=== PATIENT | female | born 1950 | race Caucasian/White ===

== ENCOUNTER 2017-11-06 09:46 | Emergency (ER) | payer MEDICAID ==
[~2017-11-06] VITALS: Ht 157.5 cm; Wt 60.0 kg
[2017-11-06 11:24] VITALS: BP 193/61
== END 2017-11-06 11:26 | disposition home or self-care (01) ==
LOC: ER 09:46
DX: M25.551 Pain in right hip (principal); V03.90XA Pedestrian on foot injured in collision with car, pick-up truck or van, unspecified whether traffic or nontraffic accident, initial encounter; Y93.01 Activity, walking, marching and hiking; Y92.014 Private driveway to single-family (private) house as the place of occurrence of the external cause; I10 Essential (primary) hypertension; E78.5 Hyperlipidemia, unspecified; E78.00 Pure hypercholesterolemia, unspecified; Z90.49 Acquired absence of other specified parts of digestive tract
CPT/HCPCS: 73521; 73552; 99284